=== PATIENT | female | born 1950 | race Caucasian/White ===

== ENCOUNTER 2017-04-05 10:56 | Outpatient (CLI) | payer MEDICARE, OTHER ==
--- NOTE | 2017-04-06 13:49 | Mammography Report ---
DIGITAL SCREENING MAMMOGRAM: 04/05/2017 CLINICAL INDICATION: A 66-year-old for screening. COMPARISON: 02/2016, 01/2014, 01/2012, 05/2010 TECHNIQUE: Routine CC and MLO projections were obtained of the breasts. FINDINGS: The breasts again demonstrate heterogeneously dense fibroglandular parenchyma bilaterally. In the left central anterior breast, there is a possible obscured nodule. Further evaluation with spot compression views and possible ultrasound is recommended. No mammographically suspicious findin gs are appreciated in the right breast. IMPRESSION: INCOMPLETE EXAMINATION. RECOMMENDATION: Additional evaluation of the left breast as above. BIRADS CATEGORY 0 - INCOMPLETE. STANDARD QUALIFYING STATEMENTS 1. This examination was reviewed with the aid of Computer-Aided Detection (CAD). 2. A negative or benign imaging report should not delay biopsy if clinically suspicious findings are present. Consider surgical consultation if warranted. More than 5% of cancers are not identified by i maging. 3. Dense breasts may obscure an underlying neoplasm. JOB #: [id number] EXT JOB #:[id number]
== END 2017-04-05 10:57 | disposition home or self-care (01) ==
LOC: DI.S 10:56
PROVIDERS: ATTEND Physician Assistant
DX: Z12.31 Encounter for screening mammogram for malignant neoplasm of breast (principal); R92.8 Other abnormal and inconclusive findings on diagnostic imaging of breast
CPT/HCPCS: 77067

== ENCOUNTER 2018-12-31 14:23 | Outpatient (CLI) | payer MEDICARE ==
--- NOTE | 2018-12-31 15:56 | Mammography Report ---
Reason: ENCOUNTER FOR SCREENING MAMMOGRAM FOR MALIGNANT NE Procedure Date: 12/31/2018 Accession Number: [id number] / [id number] Procedure: CEZAR - Screening Mammo w/Higinio CPT Code: FULL RESULT: EXAM: Screening Mammo w/Higinio DATE: 12/31/2018 3:30 PM CLINICAL HISTORY: TECHNIQUE: (B) - Bilateral CC and MLO views were obtained. In addition, bilateral 3-D mammography was also performed.. COMPARISON: 02/03/2014, 02/24/2016, 04/05/2017, 05/24/2017 PARENCHYMAL PATTERN: (A) - The breasts demonstrate scattered fibroglandular densities bilaterally. FINDINGS: There are no suspicious masses, calcifications, or areas of distortion. IMPRESSION: Negative examination. BI-RADS category 1. RECOMMENDATION: (ANNUAL) - Recommend routine annual screening mammography. BI-RADS CATEGORY: (1) - Negative. STANDARD QUALIFYING STATEMENTS: 1. This examination was not reviewed with the aid of Computer-Aided Detection (CAD). 2. A negative or benign imaging report should not preclude biopsy if clinically suspicious findings are present. 3. Dense breasts may obscure an underlying neoplasm. 4. This examination was reviewed with the aid of 3D breast imaging (tomosynthesis).
== END 2018-12-31 14:24 | disposition home or self-care (01) ==
LOC: DI 14:23
PROVIDERS: ATTEND Physician Assistant
DX: Z12.31 Encounter for screening mammogram for malignant neoplasm of breast (principal)
CPT/HCPCS: 77063; 77067

== ENCOUNTER 2020-07-30 08:44 | Outpatient (CLI) | payer MEDICARE ==
[2020-07-30 15:03] LABS: BASOPHILS # (AUTO) 0.1 10^3/uL (0.0-0.1); BASOPHILS % (AUTO) 1.5 %; EOSINOPHILS # (AUTO) 0.4 10^3/uL (0.0-0.7); EOSINOPHILS % (AUTO) 13.1 %; HGB - HEMOGLOBIN 14.6 g/dL (12.0-16.0); LYMPHOCYTES # (AUTO) 1.4 10^3/uL (1.5-3.5); LYMPHOCYTES % (AUTO) 43.4 %; MEAN CORPUSCULAR HEMOGLOBIN 31.6 pg (27.0-31.0); MEAN CORPUSCULAR HGB CONC 31.9 g/dL (32.0-36.0); MEAN CORPUSCULAR VOLUME 99.1 fL (81.0-99.0); MEAN PLATELET VOLUME 9.1 fL (7.9-10.8); MONOCYTES # (AUTO) 0.3 10^3/uL (0.0-1.0); MONOCYTES % (AUTO) 8.9 %; NEUTROPHILS # (AUTO) 1.1 10^3/uL (1.5-6.6); NEUTROPHILS % (AUTO) 33.1 %; PLT - PLATELET COUNT 256 10^3/uL (130-450); RED BLOOD COUNT 4.62 10^6/uL (4.20-5.40); RED CELL DISTRIBUTION WIDTH 12.5 % (12.0-15.0); WHITE BLOOD COUNT 3.3 x10^3/uL (4.8-10.8)
[2020-07-30 16:24] LABS: CHOL/HDL RATIO 2.7 (<4.4); CHOLESTEROL 268 mg/dL; HDL CHOLESTEROL 100 mg/dL; LDL CHOLESTEROL,CALCULATED 154 mg/dL; LDL/HDL RATIO 1.5 (<4.4); VLDL CHOLESTEROL 14 mg/dL
[2020-07-31 13:41] LABS: HEPATITIS C ANTIBODY NON-REACTIVE (NON-REACTIVE)
--- OUTSIDE RECORDS SUMMARY | 2020-08-04 01:30 | EXTERNAL MEDICAL SUMMARY RPT | Continuity of Care Document ---
:1950 Demographics Phone Unavailable Preferred Language Unknown Marital Status Unknown Gnosticist Affiliation Unknown Race Unknown Ethnic Group Unknown Author Organization [place] Address [address] [phone] Phone Care Team Providers Name Role Phone Lynn Unavailable Unavailable Zeng Unavailable Unavailable Problems date description facility 2018-12-31 14:23 ENCNTR SCREEN MAMMOGRAM FOR [facility] MALIGNANT NEOPLASM OF BREAST 2020-07-30 08:44 PURE HYPERCHOLESTEROLEMIA, [facility] UNSPECIFIED Results Social History date description facility [id number]
== END 2020-07-30 08:45 | disposition home or self-care (01) ==
LOC: LAB.S 08:44
PROVIDERS: ATTEND Family Medicine
DX: E78.00 Pure hypercholesterolemia, unspecified (principal); D72.819 Decreased white blood cell count, unspecified; Z11.59 Encounter for screening for other viral diseases
CPT/HCPCS: 36415; 80061; 83721; 85025; 86803

== ENCOUNTER 2020-08-30 14:13 | Outpatient (CLI) | payer MEDICARE ==
--- NOTE | 2020-09-01 12:45 | Mammography Report ---
BILATERAL DIGITAL SCREENING MAMMOGRAM 3D/2D: 08/30/2020 CLINICAL: Routine screening. Comparison is made to exams dated: 12/31/2018 mammogram, 05/24/2017 mammogram, 04/05/2017 mammogram, 02/24/2016 mammogram - , and 02/03/2014 mammogram - [facility]. The tissu e of both breasts is heterogeneously dense. This may lower the sensitivity of mammography. No significant masses, calcifications, or other findings are seen in either breast. There has been no significant interval change. IMPRESSION: NEGATIVE There is no mammographic evidence of malignancy. A 1 year screening mammogram is recommended. This exam was interpreted at Station ID: [id number]. NOTE: For mammograms, a report in lay terms will be sent to the patient. Approximately 15% of breast malignancies will not be visualized mammographically. In the management of a palpable breast mass, a negative mammogram must not discourage biopsy of a clinically suspicious lesion. Electronically Signed By: Bradley Nicholson M.D. [facility] [place]:08/31/2020 13:21:51 ACR BI-RADS Category 1: Negative 3341F PARENCHYMAL PATTERN: (D) - The breast(s) demonstrate(s) heterogeneously dense fibroglandular parmanuel taylor. BI-RADS CATEGORY: (1) - 1 RECOMMENDATION: (ANNUAL) - Recommend routine annual screening mammography. [id number] 1 year screening LATERALITY: (B)
== END 2020-08-30 14:14 | disposition home or self-care (01) ==
LOC: DI.S 14:13
PROVIDERS: ATTEND Family Medicine
DX: Z12.31 Encounter for screening mammogram for malignant neoplasm of breast (principal)

== ENCOUNTER 2021-11-03 14:19 | Outpatient (CLI) | payer MEDICARE ==
--- NOTE | 2021-11-03 16:00 | DEXA Report ---
PROCEDURE: Dexa Spine and/or Hip INDICATIONS: OSTEOPENIA TECHNIQUE: Dual energy x-ray absorptiometry (DXA) was performed on a Sweepery System. Regions measur ed are the AP Spine, femoral neck, and if needed forearm. COMPARISON: None. FINDINGS: Lumbar Spine: Bone Mineral Density 1.155 g/cm/cm,T score -0.2, normal. Left Hip: Bone Mineral Density 0.843 g/cm/cm,T score -1.3, osteoporotic. Left Femoral Neck: Bone Mineral Density 0.789 g/cm/cm, T score -1.8, osteoporotic. (T score greater or equal to -1.0: NORMAL) (T score from -1.1 to -2.4: OSTEOPENIA) (T score less than or equal to -2.5 to: OSTEOPOROSIS) Impression: Based on WHO criteria the patient is osteopenic. Patients with diagnosis of osteoporosis or osteopenia should have regular bone mineral density assess ment. For those eligible for Medicare, routine testing is allowed once every 2 years. Testing frequ ency can be increased for patients who have rapidly progressing disease or for those who are receivin g medical therapy to restore bone mass. Reviewed by: Margy Che MD on 11/03/2021 3:59 PM PDT Approved by: Margy Che MD on 11/03/2021 3:59 PM PDT Station ID: [id number]
== END 2021-11-03 14:20 | disposition home or self-care (01) ==
LOC: DI 14:19
PROVIDERS: ATTEND Physician Assistant
DX: M85.89 Other specified disorders of bone density and structure, multiple sites (principal)

== ENCOUNTER 2021-11-21 15:07 | Outpatient (CLI) | payer MEDICARE ==
--- NOTE | 2021-11-25 16:24 | Mammography Report ---
BILATERAL DIGITAL SCREENING MAMMOGRAM 3D/2D: 11/21/2021 CLINICAL: Routine screening. Family history of breast cancer. Comparison is made to exams dated: 08/30/2020 mammogram, 12/31/2018 mammogram, and 05/24/2017 mammogram - [facility]. The tissue of both breasts is heterogeneously dense. This may lower the sensitivity of mammography. No significant masses, calcifications, or other findings are seen in either breast. There has been no significant interval change. IMPRESSION: NEGATIVE There is no mammographic evidence of malignancy. A 1 year screening mammogram is recommended. This exam was interpreted at Station ID: [id number]. NOTE: For mammograms, a report in lay terms will be sent to the patient. Approximately 15% of breast malignancies will not be visualized mammographically. In the management of a palpable breast mass, a negative mammogram must not discourage biopsy of a clinically suspicious lesion. Electronically Signed By: Tam Rothman M.D. ar/penrad:11/22/2021 08:35:18 ACR BI-RADS Category 1: Negative 3341F PARENCHYMAL PATTERN: (D) - The breast(s) demonstrate(s) heterogeneously dense fibroglandular parmanuel ma. BI-RADS CATEGORY: (1) - 1 RECOMMENDATION: (ANNUAL) - Recommend routine annual screening mammography. [id number] 1 year screening LATERALITY: (B)
== END 2021-11-21 15:08 | disposition home or self-care (01) ==
LOC: DI.S 15:07
PROVIDERS: ATTEND Physician Assistant
DX: Z12.31 Encounter for screening mammogram for malignant neoplasm of breast (principal); Z80.3 Family history of malignant neoplasm of breast

== ENCOUNTER 2021-12-09 08:00 | Outpatient (CLI) | payer MEDICARE ==
--- NOTE | 2021-12-09 17:42 | XRAY Report ---
PROCEDURE: Finger(s) LT INDICATIONS: CONTUSION OF LEFT THUMB TECHNIQUE: AP hand, 2 views of the wrist finger(s) acquired. COMPARISON: None FINDINGS: Bones: No fractures or dislocations. Mild osteoarthritic changes at first CMC joint and MCP joint a re seen. No suspicious bony lesions. Soft tissues: No suspicious soft tissue calcifications. IMPRESSION: Mild left thumb osteoarthritis. No fracture or dislocation. No gross bony erosive changes. Reviewed by: Kris Barba MD on 12/09/2021 5:41 PM PDT Approved by: Kris Barba MD on 12/09/2021 5:41 PM PDT Station ID: [id number]
== END 2021-12-09 23:59 | disposition home or self-care (01) ==
LOC: DI.S 08:00
PROVIDERS: ATTEND Emergency Medicine
DX: S60.012A Contusion of left thumb without damage to nail, initial encounter (principal); M18.9 Osteoarthritis of first carpometacarpal joint, unspecified; M19.042 Primary osteoarthritis, left hand

== ENCOUNTER 2023-03-23 14:05 | Outpatient (CLI) | payer MEDICARE ==
--- NOTE | 2023-03-24 09:34 | XRAY Report ---
PROCEDURE: Hand 3 View LT INDICATIONS: PAIN OF LEFT HAND TECHNIQUE: 3 views of the hand(s) acquired. COMPARISON: X-ray left finger, 12/09/2009 22. FINDINGS: Bones: No fractures or dislocations. No suspicious bony lesions. Mild degenerative joint disease in volving the triscaphe joint, the first carpometacarpal joint and multiple interphalangeal joints. Soft tissues: No suspicious soft tissue calcifications or masses. IMPRESSION: Mild degenerative joint disease. Reviewed by: Margy Che MD on 03/24/2023 9:32 AM PDT Approved by: Margy Che MD on 03/24/2023 9:32 AM PDT Station ID: [id number]
== END 2023-03-23 14:06 | disposition home or self-care (01) ==
LOC: DI.S 14:05
PROVIDERS: ATTEND Physician Assistant
DX: M19.042 Primary osteoarthritis, left hand (principal)

== ENCOUNTER 2023-04-24 15:04 | Outpatient (CLI) | payer MEDICARE ==
--- NOTE | 2023-04-25 13:25 | Mammography Report ---
BILATERAL DIGITAL SCREENING MAMMOGRAM 3D/2D: 04/24/2023 CLINICAL: Routine screening. Family history of breast cancer. No prior exams were available for comparison. Both breasts are heterogeneously dense, which may obscure small masses (category c / 51-75% glandular tissue). No significant masses, calcifications, or other findings are seen in either breast. IMPRESSION: NEGATIVE There is no mammographic evidence of malignancy. A 1 year screening mammogram is recommended. Based on the Tyrer Cuzick model (a risk assessment model) the patients lifetime risk is 5.7% and her 10 year risk is 4.3%. According to the ACR, ACS, and NCCN guidelines, an annual breast MRI exam gracie g with mammogram is recommended if the patients lifetime risk is 20% or greater. This exam was interpreted at Station ID: [id number]. NOTE: For mammograms, a report in lay terms will be sent to the patient. Approximately 15% of breast malignancies will not be visualized mammographically. In the management of a palpable breast mass, a negative mammogram must not discourage biopsy of a clinically suspicious lesion. Electronically Signed By: Gume vu/alexia:04/25/2023 08:57:35 letter sent: No_Letter ACR BI-RADS Category 1: Negative 3341F PARENCHYMAL PATTERN: (D) - The breast(s) demonstrate(s) heterogeneously dense fibroglandular parbeverlyy brandon. BI-RADS CATEGORY: (1) - 1 Mammogram [id number] 1 year screening LATERALITY: (B)
== END 2023-04-24 15:05 | disposition home or self-care (01) ==
LOC: DI.S 15:04
PROVIDERS: ATTEND Physician Assistant
DX: Z12.31 Encounter for screening mammogram for malignant neoplasm of breast (principal); Z80.3 Family history of malignant neoplasm of breast

== ENCOUNTER 2024-02-11 10:43 | Outpatient (CLI) | payer MEDICARE ==
--- NOTE | 2024-02-12 07:16 | DEXA Report ---
PROCEDURE: Dexa Spine and/or Hip INDICATIONS: OSTEOPENIA TECHNIQUE: Dual energy x-ray absorptiometry (DEXA) was performed in the regions detailed below. COMPARISON: 11/03/2021 FINDINGS: Lumbar Spine: Bone Mineral Density 1.1 g/cm/cm,T score -0.7. Previously -0.2 Left Femoral Neck: Bone Mineral Density 0.756 g/cm/cm, T score -2.0. Previously -1.8 Left Total Hip: Bone Mineral Density 0.773 g/cm/cm,T score -1.9. Previously -1.3 (T score greater or equal to -1.0: NORMAL) (T score from -1.1 to -2.4: OSTEOPENIA) (T score less than or equal to -2.5 to: OSTEOPOROSIS) IMPRESSION: Osteopenia Patients with diagnosis of osteoporosis or osteopenia should have regular bone mineral density assess ment. For those eligible for Medicare, routine testing is allowed once every 2 years. Testing frequ ency can be increased for patients who have rapidly progressing disease or for those who are receivin g medical therapy to restore bone mass. Reviewed by: Zach Jarrett MD on 02/12/2024 6:14 AM TELLO Approved by: Zach Jarrett MD on 02/12/2024 6:14 AM TELLO Station ID: [id number]
== END 2024-02-11 10:44 | disposition home or self-care (01) ==
LOC: DI 10:43
PROVIDERS: ATTEND Registered Nurse
DX: M85.89 Other specified disorders of bone density and structure, multiple sites (principal)